=== PATIENT | male | born 1975 | race Caucasian/White ===

== ENCOUNTER 2024-01-17 11:47 | Emergency (ER) | payer MEDICARE, MEDICAID, SELFPAY ==
[2024-01-17 12:42] VITALS: BP 130/69; PULSE 82; RESP 16; TEMP 36.8; O2SAT 96; BMI 38.1
--- NOTE | 2024-01-17 12:44 | ED.GENADULT ---
HPI - General Adult General Chief complaint: General Medical Stated complaint: Fever, lethargic Time Seen by Provider: 01/17/24 13:08 Source: patient and other (shared living employe) Mode of arrival: ambulatory Limitations: other (Developmental delay, cognitive disorder) History of Present Illness HPI narrative: 48 yo m hx of developmental delay, hypogammaglobulinemia, BPH, GERD, constipation, seasonal allergies, ADHD, impulse control disorder, anxiety, OCD, tinea pedis, PTSD hyperlipidemia presenting to the emergency department for fatigue, malaise, diarrhea, dark urine, myalgias all of which started yesterday. Here with worker who is starting to get sick also. Patient is still eating and drinking. Taking Tylenol for symptoms which are improving. No difficulties with bowel habits. Denies chest pain, shortness of breath, nausea, vomiting, abdominal pain, headache, vision changes, dizziness, weakness. Related Data Previous Rx's Medication Instructions Recorded loperamide 2 mg capsule 2 mg PO Q6H PRN loose stool #20 01/17/24 caps Allergies Allergy/AdvReac Type Severity Reaction Status Date / Time No Known Allergies Allergy Unverified 08/05/20 17:52 Review of Systems Review of Systems: Yes all other systems are reviewed and are negative PMFSH Past Medical History Attestation statement: The following information was validated with the patient. Source: old records reviewed and nursing notes reviewed Social History Social History Advance Directives: No Advance Directives Information Provided: No Physical Exam ED Vital Signs: Vital Signs - 24 hr 01/17/24 12:42 Temperature 98.2 F Pulse Rate 82 Respiratory Rate 16 Blood Pressure 130/69 Pulse Oximetry 96 Oxygen Delivery Method Room Air BMI result Body Mass Index 38.1 Vital signs stable Appearance: Alert.? Oriented X3.? No acute distress.? Head: Normocephalic, atraumatic, no step-offs or deformities Eyes: Pupils equal, round and reactive to light.? ENT: Pharynx normal.? Normal tonsils no abscess, or exudate. Neck: Normal inspection.? Neck supple.? CVS: Normal heart rate and rhythm.? Pulses normal.? Respiratory: No respiratory distress.? Breath sounds normal.? Abdomen: Soft and nontender.? Skin: Skin warm and dry.? Normal skin color.? Normal skin turgor.? Extremities: No lower extremity edema.? No calf ttp. 5/5 strength to bilateral upper and lower extremities Neuro: Oriented X 3.? No motor deficit.? No sensory deficit. CN 2-12 intact. Ambulating with steady gait normal coordination Course Course Course Narrative: This is a rapid medical exam: Additional HPI, ROS, PE not included below will be deferred to primary provider. Patient is a 48-year-old male presenting to the emergency department with fever, fatige, one episode of diarrhea since yesterday. Denies cough or abdominal pain. Family reports dark urine. Plan: viral swabs, labs, UA Reevaluation(s) Reevaluation #1: Chemistry slight bump in transaminases this could be secondary to acute viral illness. No acute electrolyte abnormalities requiring intervention. UA without infection. Flu, COVID, RSV and strep negative. CBC pending. Will call lab for results. Time: 13:50 Reevaluation #2: Patient noted to have leukopenia, slightly elevated red blood cell count will encourage p.o. hydration this could be secondary to hemoconcentration. There is predominance in monocytes supporting a likely viral illness. Patient and staff member informed of this. Educated on supportive measures. Educated patient on diagnosis and treatment plan, answered all question, patient verbalizes understanding. At this time patient will be discharged home, advised to return with new or worsening symptoms. Educated on worrisome signs and symptoms and when to return. At this time I feel comfortable discharge home. Time: 13:53 Medical Decision Making Medical Decision Making MDM Narrative: 48-year-old male presents fatigue, malaise, myalgia, concentrated urine, diarrhea x2 days. Physical examination benign History and physical exam concerning for viral illness versus UTI versus cystitis. Unlikely obstructing uropathy, systemic illness, acute abdomen, kidney stone. Unlikely metabolic derangements however will rule out. No signs of meningitis, encephalitis. No signs of lethargy on my exam or somnolence. Plan at this time labs, viral test, urine Differential Diagnosis Differential Diagnoses: The differential diagnosis associated with the presentation includes History and physical exam concerning for viral illness versus UTI versus cystitis. Unlikely obstructing uropathy, systemic illness, acute abdomen, kidney stone. Unlikely metabolic derangements however will rule out. No signs of meningitis, encephalitis. No signs of lethargy on my exam or somnolence. Admission/Observation Consideration of admission/observation: Escalation of care including admission/observation considered Unlikely Lab Data MDM Lab Attestation statement: I reviewed the patient's lab results. 01/17/24 13:03 01/17/24 13:03 Labs: Lab Results 01/17/24 01/17/24 Range/Units 13:03 13:31 WBC 3.3 L (4.8-10.8) X10*3/uL RBC 5.82 H (4.60-5.80) X10*6/uL Hgb 16.3 (14.0-18.0) g/dl Hct 46.4 (42.0-52.0) % MCV 79.7 L (80.0-98.0) fL MCH 28.0 (27.0-33.0) pg MCHC 35.1 (31.0-36.0) g/dl RDW 13.4 (11.0-16.0) % Plt Count 114 L (160-400) X10*3/uL MPV 11.8 (9.4-12.4) fL Immature Gran % (Auto) 0.9 H (0.0-0.4) % Neut % (Auto) 50.7 (45-73) % Lymph % (Auto) 21.8 (20-40) % [place] % (Auto) 24.2 H (2-11) % Eos % (Auto) 0.3 (0-4) % Baso % (Auto) 2.1 H (0-2) % Lymph # (Auto) 0.7 L (1.2-4.9) X10*3/uL [place] # (Auto) 0.8 (0.1-1.2) X10*3/uL Eos # (Auto) 0.0 (0.0-0.4) X10*3/uL Baso # (Auto) 0.1 (0.0-0.2) X10*3/uL Abs Immat Gran (auto) 0.03 (0.00-0.03) X10*3/uL Absolute Neuts (auto) 1.7 L (2.0-8.3) x10*3/uL Absolute Nucleated RBC 0.000 (0.0-0.012) X10*3/uL Nucleated RBC % (auto) 0.0 (0.0-0.2) /100WBC Sodium 138 (135-145) mmol/L Potassium 3.5 (3.3-5.1) mmol/L Chloride 99 (96-108) mmol/L Carbon Dioxide 28 (22-29) mmol/L Anion Gap 15 (12-20) BUN 14 (9-16) mg/dL Creatinine 1.17 (0.5-1.4) mg/dL Estim Creat Clear Calc 95.3 Estimated GFR > 60 Random Glucose 105 (60-115) mg/dL Calcium 9.3 (8.4-10.2) mg/dL Magnesium 1.9 (1.6-2.6) mg/dL Total Bilirubin 0.8 (0.0-1.0) mg/dL AST 65 H (5-37) U/L ALT 84 H (0-40) U/L Alkaline Phosphatase 60 (39-117) U/L Total Protein 7.4 (6.5-8.0) g/dL Albumin 4.2 (3.5-5.0) g/dL Lipase 56 (8-78) U/L Urine Color Yellow Urine Appearance Clear Urine pH 6.5 (5.0-9.0) Ur Specific [place] 1.010 (1.005-1.025) Urine Protein Negative (Neg-Trace) mg/dL Urine Glucose (UA) Negative (Negative) mg/dL Urine Ketones Negative (Negative) mg/dL Urine Blood Negative (Negative) Urine Nitrite Negative (Negative) Ur Leukocyte Esterase Negative (Negative) Influenza Type A (PCR) NEGATIVE (Negative) Influenza Type B (PCR) NEGATIVE (Negative) RSV RNA Qual (PCR) NEGATIVE (Negative) SARS-CoV-2 RNA (RT-PCR) NEGATIVE (Negative) S. pyogenes GrpA PAUL Negative (Negative) Tests considered The following testing was considered but not selected: No indication for abdominal imaging, no pain with palpation on exam. Patient about cough, no respiratory symptoms no indication for chest x-ray. Prescription Management I considered prescription management with: Antibiotic Chronic Conditions Patient?s care impacted by: Other (Please refer to HPI.) Social Determinants Patient?s care significantly limited by Social Determinants of Health including: Inadequate housing, Low income, Problems related to primary support group, Unemployment, Problems related to employment and Other Social Determinant of Health Critical Care Time Critical Care Time Critical Care Time: No Discharge Plan Discharge Clinical Impression: Viral illness Patient Disposition: Home, Self-Care Instructions: Viral Syndrome (ED) Additional Instructions: Take your medications as prescribed. If you were prescribed antibiotics today, it is important that you take your medication to their entirety, do not skip any doses, do not finish them early. Follow-up with your primary care provider this week. Return to the emergency department with new or worsening symptoms. Such as fevers, chills, chest pain, shortness of breath, nausea, vomiting, dizziness, headache, vision changes, lethargy In case of emergency call 911 You can give ibuprofen every 6 hours, Tylenol every 4 as needed for fever, pain or discomfort. Do not exceed maximum daily dose as listed on packaging. Encourage fluid hydration Prescriptions: New loperamide 2 mg capsule 2 mg PO Q6H PRN (Reason: loose stool) Qty: 20 0RF Referrals: Noreen Hernandez MD [Primary Care Provider] - 2 days Stand Alone Forms: Work/School Release
[2024-01-17 13:17] LABS: Basophils Absolute Auto 0.1 X10*3/uL (0.0-0.2); Basophils Percent Auto 2.1 % (0-2); Eosinophils Percent Auto 0.3 % (0-4); Hematocrit 46.4 % (42.0-52.0); Hemoglobin 16.3 g/dl (14.0-18.0); Imm Gran Abs Auto 0.03 X10*3/uL (0.00-0.03); Imm Gran Pct Auto 0.9 % (0.0-0.4); Lymphocytes Absolute Auto 0.7 X10*3/uL (1.2-4.9); Lymphocytes Percent Auto 21.8 % (20-40); MANUAL DIFF FLAG SCAN; Mean Corpuscular HGB Conc 35.1 g/dl (31.0-36.0); Mean Corpuscular Volume 79.7 fL (80.0-98.0); Mean Platelet Volume 11.8 fL (9.4-12.4); Monocytes Absolute Auto 0.8 X10*3/uL (0.1-1.2); Monocytes Percent Auto 24.2 % (2-11); Neutrophils Absolute Auto 1.7 x10*3/uL (2.0-8.3); Neutrophils Percent Auto 50.7 % (45-73); Platelet Count 114 X10*3/uL (160-400); Red Blood Count 5.82 X10*6/uL (4.60-5.80); Red Cell Distribution Width 13.4 % (11.0-16.0); SCAN SMEAR FLAG 1; White Blood Count 3.3 X10*3/uL (4.8-10.8)
[2024-01-17 13:24] LABS: IDNOW Serial# 08D9AD1C; Strep A Nucleic Acid Negative (Negative)
[2024-01-17 13:27] LABS: Alanine Aminotransferase 84 U/L (0-40); Albumin Level 4.2 g/dL (3.5-5.0); Alkaline Phosphatase 60 U/L (39-117); Anion Gap 15 (12-20); Aspartate Amino Transferase 65 U/L (5-37); Bilirubin Total 0.8 mg/dL (0.0-1.0); Blood Urea Nitrogen 14 mg/dL (9-16); Calcium 9.3 mg/dL (8.4-10.2); Carbon Dioxide 28 mmol/L (22-29); Chloride 99 mmol/L (96-108); Creatinine Clr Calc Pharmacy 95.3; Estimated Glomerular Filt Rate > 60; Glucose Random 105 mg/dL (60-115); Lipase 56 U/L (8-78); Magnesium 1.9 mg/dL (1.6-2.6); Potassium 3.5 mmol/L (3.3-5.1); Sodium 138 mmol/L (135-145); Total Protein 7.4 g/dL (6.5-8.0)
[2024-01-17 13:41] LABS: Appearance Urine Clear; Color Urine Yellow; Glucose Urine UA Negative (Negative); Leukocyte Esterase Urine Negative (Negative); Nitrite Urine Negative (Negative); PH 6.5 (5.0-9.0); Urine Blood Negative (Negative); Urine Ketones Negative (Negative); Urine Protein Negative (Neg-Trace)
[2024-01-17 13:47] LABS: Influenza A PCR NEGATIVE (Negative); Influenza B PCR NEGATIVE (Negative); Resp Syncy Virus RNA Qual PCR NEGATIVE (Negative); SARS COV2 PCR INHOUSE NEGATIVE (Negative)
[2024-01-17 13:52] LABS: SLIDE REVIEW VERIFIED
== END 2024-01-17 14:09 | disposition home or self-care (01) ==
PROVIDERS: Registered Nurse Emergency; Emergency Provider Emergency Medicine; PCP Internal Medicine
DX: B34.9 Viral infection, unspecified (principal); R50.9 Fever, unspecified; M79.10 Myalgia, unspecified site; Z11.52 Encounter for screening for COVID-19; Z79.899 Other long term (current) drug therapy; Z20.822 Contact with and (suspected) exposure to COVID-19
CPT/HCPCS: 0241U; 80053; 81003; 83690; 83735; 85025; 87651; 99283